=== PATIENT | female | born 1955 | race Caucasian/White ===

== ENCOUNTER 2017-05-28 09:25 | Inpatient (IN) | END 2017-06-04 19:00 | disposition home or self-care (01) | DRG 440 | DX: K85.90 Acute pancreatitis without necrosis or infection, unspecified (principal); I10 Essential (primary) hypertension; K86.1 Other chronic pancreatitis; K21.9 Gastro-esophageal reflux disease without esophagitis; F41.9 Anxiety disorder, unspecified; E66.9 Obesity, unspecified; Z68.33 Body mass index [BMI] 33.0-33.9, adult; E78.00 Pure hypercholesterolemia, unspecified ==

== ENCOUNTER 2017-12-12 12:36 | Day surgery (SDC) | END 2017-12-12 16:45 | disposition home or self-care (01) ==